=== PATIENT | female | born 1975 | race Caucasian/White ===

== ENCOUNTER → 2017-11-04 | Outpatient (CLI) | payer OTHER, SELFPAY | PROVIDERS: Visit Provider Internal Medicine Cardiovascular Disease | DX: I25.10 Atherosclerotic heart disease of native coronary artery without angina pectoris (principal); I10 Essential (primary) hypertension | CPT/HCPCS: 36415; 80048 ==

== ENCOUNTER → 2017-11-24 19:26 | Outpatient (CLI) | payer OTHER, SELFPAY | PROVIDERS: PCP Internal Medicine Cardiovascular Disease; Visit Provider Internal Medicine Cardiovascular Disease | DX: G47.10 Hypersomnia, unspecified (principal); I10 Essential (primary) hypertension; J44.9 Chronic obstructive pulmonary disease, unspecified; I25.10 Atherosclerotic heart disease of native coronary artery without angina pectoris | CPT/HCPCS: 95810 ==

== ENCOUNTER → 2018-02-03 14:00 | Outpatient (CLI) | payer MEDICAID, SELFPAY ==
[2018-02-03 16:24] LABS: Alanine Aminotransferase 158 U/L (12-78); Albumin Level 3.8 gm/dL (3.4-5.0); Alkaline Phosphatase 135 U/L (46-116); Aspartate Amino Transferase 172 U/L (15-37); Bilirubin,Direct 0.1 mg/dL (0.0-0.2); Bilirubin,Total 0.4 mg/dL (0.2-1.0); Chol/HDL Ratio 4.6 (1-3.5); Cholesterol 172 mg/dL (140-200); HDL Cholesterol 37 mg/dL (29-89); LDL Cholesterol 106 mg/dL (0-130); Total Protein,Serum 7.8 gm/dL (6.4-8.2); Triglycerides 146 mg/dL (30-200); VLDL Cholesterol 29 mg/dL (0-40)
== END ==
PROVIDERS: Physician Assistant; Visit Provider Internal Medicine Cardiovascular Disease
DX: I25.10 Atherosclerotic heart disease of native coronary artery without angina pectoris (principal); E78.5 Hyperlipidemia, unspecified; I10 Essential (primary) hypertension
CPT/HCPCS: 36415; 80061; 80076

== ENCOUNTER → 2019-08-23 12:46 | Outpatient (CLI) | payer MEDICAID, SELFPAY ==
--- NOTE | 2019-08-23 12:47 | CA_ITS ---
APPROVED REPORT EXAM: Comprehensive 2D, Doppler, and color-flow Echocardiogram Evening Sitter: Fabiola Martinez RDCS Ht: 5 ft 3 in Wt: 201lbs BSA: 1.94 BP: 131/93 mmHg Indications: Shortness of Breath, CAD, Hypertension/HDD, OBESITY 2D Dimensions LVOT 1.80 cm (M/F) 1.5-2.5 M-Mode Dimensions RVDd 2.60 cm (0.9-2.6) LA Diam 3.00 cm (1.9-4.0) LVDd 4.70 cm (3.5-5.7) Ao Diam 4.10 cm (2.0-3.7) LVDs 3.20 cm (3.5-5.7) AV Cusp 2.00 cm (1.5-2.6) IVSd 1.10 cm (0.6-1.1) PWd 0.90 cm (0.6-1.1) EF (Teich) 59.80% FS 31.90% EDV (Teich) 102.00 mL ESV (Teich) 41.00 mL LV Diastology E/A Ratio 1.2 MED E' 9.36 (< 7 cm/sec) E'/MED E' Ratio 7.40 (>14) LAT E' 11.10 (<10 cm/sec) E/LAT E' Ratio 6.20 (>14) Mitral Valve MV E Max Sebastián. 69.10 (40-130 cm/s) MV A Velocity 57.80 (40-130 cm/s) E/A Ratio 1.20 Tricuspid Valve TR P. Velocity 240.00 cm/s RAP Estimate 10.00 mmHg RVSP 33.00 mmHg Left Ventricle Left atrium is normal size, left ventricle is normal size, there is no concentric left ventricular hypertrophy, visually estimated ejection fraction 55% with no regional wall motion abnormality. Right Ventricle Right atrium and right ventricular normal size and contractility. Aortic Valve Aortic valve is grossly normal, there is no aortic stenosis aortic insufficiency. Mitral Valve Mitral valve is grossly normal, there is mild mitral regurgitation. Tricuspid Valve Tricuspid valve is grossly normal, there is mild tricuspid regurgitation. Pulmonic Valve Pulmonic valve is poorly visualized. Great Vessels Aortic root is normal size. Pericardium There is no significant pericardial effusion noted, there is anterior echo-free space seen. Conclusion 1. Normal left ventricular size, preserved left ventricular systolic function, visually estimated ejection fraction 55% with no regional wall motion abnormality, diastolic parameters are within normal range. 2. Mild mitral and tricuspid regurgitation. 3. No significant pericardial effusion in the anterior echo-free space seen. Electronically signed by : Crescencio Baird, 08/24/2019 15:17:03
== END ==
PROVIDERS: PCP Family Medicine; Visit Provider Urology
DX: I25.10 Atherosclerotic heart disease of native coronary artery without angina pectoris (principal); R06.00 Dyspnea, unspecified; E78.5 Hyperlipidemia, unspecified; I11.9 Hypertensive heart disease without heart failure; F17.200 Nicotine dependence, unspecified, uncomplicated
CPT/HCPCS: 93306

== ENCOUNTER 2021-07-01 13:14 | Emergency (ER) | payer MEDICAID, SELFPAY ==
--- NOTE | 2021-07-01 13:36 | HMH.EDGENADL ---
ED Disposition Referrals: Davonte Maldonado [Primary Care Provider] - Attestation: On 07/01/21, the high probability of a clinically significant, sudden or life threatening deterioration of the following system(s) required my full and direct attention, intervention and personal management. The time I documented below is in addition to time spent performing reported procedures but includes the following listed in this critical care notation. General Adult HPI - General Stated complaint: swelling in the r hand finger, elbow aches Time Seen by Provider: 07/01/21 13:36 - Related Data Home Medications Medication Instructions Recorded Confirmed evolocumab 140 mg/mL subcutaneous 140 mg SUB-Q Q2W 12/08/17 pen injector insulin lispro 100 unit/mL 10 unit SUB-Q QPM 12/08/17 subcutaneous solution levothyroxine 125 mcg tablet 125 mcg PO QDAY tab 12/08/17 metoclopramide HCl 10 mg tablet 10 mg PO QID tab 12/08/17 ropinirole 0.5 mg tablet 0.5 mg PO TID 12/08/17 sennosides 8.6 mg tablet 8.6 mg PO QDAY tab 12/08/17 tizanidine 4 mg capsule 4 mg PO QID cap 12/08/17 trazodone 50 mg tablet 50 mg PO ONCE tab 12/08/17 gabapentin 600 mg tablet 800 mg PO TID tab 08/15/19 lansoprazole 30 mg capsule,delayed 30 mg PO DAILY cap 08/15/19 release Previous Rx's Medication Instructions Recorded amlodipine 5 mg tablet 5 mg PO BID #180 tab 02/14/18 bisoprolol fumarate 10 mg tablet 10 mg PO DAILY #30 tab 08/15/19 hydrochlorothiazide 12.5 mg tablet 12.5 mg PO DAILY #30 tab 08/15/19 losartan 100 mg tablet 100 mg PO DAILY #30 tab 08/15/19 aspirin 81 mg tablet,delayed 81 mg PO QDAY #90 tab 05/20/20 release atorvastatin 10 mg tablet 10 mg PO QDAY #30 tab 07/29/20 Allergies Allergy/AdvReac Type Severity Reaction Status Date / Time No Known Allergies Allergy Verified 08/15/19 09:05 [facility] History - Hepatitis A Screen Attestation statement:: This patient has been screened for Hepatitis A risk factors. Medical History: Reports:: Anxiety, Asthma, Chronic Obstructive Pulmonary Disease (COPD), Coronary Artery Disease, Depression, Diabetes Mellitus Type 2, Gastroesophageal Reflux Disease(GERD), Hyperlipidemia, Hypertension, Palpitations Other Medical History: Reports: Anemia, Fibromyalgia, Hypothyroidism Laterality Cases: Bilateral: Tonsillectomy Other Surgeries: Yes: No Previous Surgery, Tubal Ligation, Other (ORAL Sx) - Social History Smoking Status: Current every day smoker Tobacco Type: cigarettes Alcohol Intake: current Alcohol Intake Frequency:: holidays/special occasions only Substance Use Type: denies use Occupational Status: unemployed - Psychiatric History Pschychiatric History:: Reports:: Anxiety, Depression Family Hx:: Heart Attack, Coronary Artery Disease
--- NOTE | 2021-07-01 13:57 | ECG_ITS ---
APPROVED REPORT Exam: Resting ECG HR:86 bpm ECG Measurements Heart Rate 86 AXES AR 140 P 42 QRSd 68 QRS 5 QT 338 T 34 QTc 404 Conclusion Normal sinus rhythm Normal ECG Electronically signed by : Thanh Shannon MD 07/02/2021 11:44:54
[2021-07-01 14:10] VITALS: BP 162/94; PULSE 107; RESP 20; TEMP 36.9; O2SAT 95
--- NOTE | 2021-07-01 14:10 | PC.NURSE ---
Pt was wanting to be seen for her right middle finger swelling last night, she put some ice on her finger and states this issue improved, she was c/o right elbow pain. I went to triage another pt when I returned pt was calling out help went to the room when pt was anxiously stating that she just didn't feel right, something was wrong, she was short of breath. Went and got the EKG machine and completed the task, pt stated that if the EKG was ok then she would feel better. Told the pt the EKG was normal and she said oh good now I feel better. Stating that she has asked her heart doctor what pains she would feel when she had a heart attach and he said it would be a different pain that what she feels daily and she stated that just made her feel anxious. Pt stated that she was better. Went outside room and approx 5 minutes later pt came out of the room stating that she needed to leave because her bp was making her stress and she was going to have a heart attach. Told the pt that we could removed the pt blood pressure cuff so it would not make her so anxious and she said no I just got to get out of here. Pt instructed to followup when she felt like she could.
== END 2021-07-01 14:11 | disposition left against medical advice (07) ==
PROVIDERS: Emergency Provider Emergency Medicine; PCP Family Medicine
DX: Z53.21 Procedure and treatment not carried out due to patient leaving prior to being seen by health care provider (principal)
CPT/HCPCS: 93005; 99211

== ENCOUNTER 2021-07-19 18:15 | Emergency (ER) | payer MEDICAID, SELFPAY ==
[2021-07-19 18:16] VITALS: BP 116/70; PULSE 78; RESP 16; TEMP 36.9; O2SAT 95; BMI 30.6
--- NOTE | 2021-07-19 19:22 | HMH.EDGENADL ---
ED Disposition Clinical Impression: Cutaneous abscess of face Disposition: Home, Self-Care Condition on Discharge: Fair Instructions: DI for Skin Abscess Additional Instructions: Stop Bactrim and start clindamycin. Continue warm compresses. Additional instructions for ABSCESS: Day one and two: Remove the bandage and shower the area, leaving the packing in place. Gently blot dry. Apply a bandage. Day three, Wednesday: Follow-up with primary care physician, clinic, or [facility]gent [facility] for packing removal and culture results. Return to the emergency department if increasing pain, swelling, redness, red streaks or fever greater than 101 degrees. Prescriptions: clindamycin HCL [Clindamycin HCl] 300 mg PO QID #40 cap Transmission Status: Pending to [id number] Referrals: Davonte Maldonado [Primary Care Provider] - - Critical Care Critical Care Time: No Attestation: On 07/19/21, the high probability of a clinically significant, sudden or life threatening deterioration of the following system(s) required my full and direct attention, intervention and personal management. The time I documented below is in addition to time spent performing reported procedures but includes the following listed in this critical care notation. Medical Decision Making - Onofre Inquiry Pt receiving controlled substance: No Onofre was queried for this patient: Yes Vital Signs: 07/19/21 18:16 Temperature 98.4 F Temperature Source Oral Pulse Rate [Right] 78 Respiratory Rate 16 Blood Pressure [Right Arm] 116/70 Blood Pressure Mean [Right Arm] 85 02 Sat by Pulse Oximetry 95 Oxygen Delivery Method Room Air Orders (Tests/Meds): ED MEDICATIONS Generic Name Dose Route Start Last Admin Trade Name Freq PRN Reason Stop Dose Admin Vancomycin HCl 1,500 mg/ 250 mls @ 125 mls/hr 07/19/21 19:45 07/19/21 19:45 Sodium Chloride IV 07/19/21 21:44 125 mls/hr ONCE ONE Administration Miscellaneous 1 each 07/19/21 19:30 07/19/21 19:34 Vancomycin Consult Request * 08/18/21 19:29 1 each CONSULT PHARMACY [facility] Administration Discontinued Medications Generic Name Dose Route Start Last Admin Trade Name Freq PRN Reason Stop Dose Admin Lidocaine/Epinephrine 20 ml 07/19/21 19:31 07/19/21 19:32 Lidocaine 1% W/Epi 1:100,000 20ml Vial SQ 07/19/21 19:32 5 ml ONCE ONE Administration ORDERS Category Date Time Status Basic Metabolic Panel Stat Lab 07/19/21 19:44 Received Complete Blood Count Auto Diff Stat Lab 07/19/21 19:44 Received Lactic Acid Stat Lab 07/19/21 19:44 Received Blood Culture Stat Micro 07/19/21 19:44 Received Wound Culture and Gram Stain Stat Micro 07/19/21 20:03 Ordered Medical Decision Narrative: Discussed treatment plan. Discussed disposition. Patient prefers not to be admitted. She would prefer an attempt at an incision and drainage in the emergency department. She is agreeable to intravenous antibiotics. Discussed disposition again after incision and drainage. Patient still declines admission. I will change her antibiotic to clindamycin and she will follow up with her primary care provider on Wednesday, return if worse. General Adult HPI - General Chief complaint: Skin/Abscess/Foreign Body Stated complaint: SPOT ON FACE Time Seen by Provider: 07/19/21 19:22 Mode of Arrival: Ambulatory Limitations: No Limitations Description of Symptoms (Recalled from ER Triage Doc. by RN): C/O ABSCESS TO LEFT CHEEK x3 DAYS. SEEN AT PCP & GIVEN BACTRIM & VALTREX, HOWEVER PAIN & SWELLING HAS INCREASED. SUBJECTIVE LOW GRADE FEVERS. - History of Present Illness HPI narrative: 3-day history of an abscess on her left cheek. States that she was seen by her primary care doctor a couple of days ago and was started on Bactrim. She also has some scaly spots below her left lower lip that have been present for about a week and he also started on Valtrex for the possibility of HSV.
--- NOTE | 2021-07-19 19:42 | PC.NURSE ---
Dr Andrade at bedside for I&D of abscess
[2021-07-19 20:05] LABS: Basophils % 0.6 % (0.1-2.0); Eosinophils % 0.3 % (0.1-12.0); Hematocrit 46.4 % (37.0-47.0); Hemoglobin 15.4 g/dL (12.2-16.2); Lymphocytes # 1.7 K/mm3 (0.7-4.5); Lymphocytes % 24.9 % (10-50); Mean Corpuscular HGB Conc 33.1 g/dL (31.8-35.4); Mean Corpuscular Hemoglobin 31.4 pg (27.0-31.2); Mean Corpuscular Volume 94.8 fl (81-99); Mean Platelet Volume 10.1 fl (7.4-10.4); Monocytes # 0.3 K/mm3 (0.1-1.0); Monocytes % 3.6 % (1.7-9.3); Neutrophils # 4.8 K/mm3 (1.8-7.8); Neutrophils % 70.6 % (37.0-80.0); Platelet Count 176 K/mm3 (142-424); Red Cell Distribution Width 13.7 % (11.5-17.5); White Blood Count 6.8 K/mm3 (4.8-10.8)
[2021-07-19 20:12] LABS: Anion Gap 16.5 mEq/L (5-15); Blood Urea Nitrogen 23 mg/dl (7-17); Calcium 10.9 mg/dl (8.4-10.2); Carbon Dioxide 23 mmol/L (22.0-30.0); Chloride 102 mmol/L (98-107); Creatinine Clearance Estimated 97 mL/min (50-200); Estimated Glomerular Filt Rate 67 ml/min (>60); GFR (African American) 82 ML/MIN (>60); Glucose 229 mg/dl (74-100); Potassium 4.5 mmoL/L (3.5-5.1); Sodium 137 mmol/L (136-145)
[2021-07-19 20:13] LABS: Lactic Acid 1.1 mmol/L (0.7-2.1)
[2021-07-19 22:21] VITALS: BP 124/82; PULSE 80; RESP 16; TEMP 36.7; O2SAT 95
== END 2021-07-19 22:22 | disposition home or self-care (01) ==
PROVIDERS: Emergency Provider Emergency Medicine; PCP Family Medicine
DX: L02.01 Cutaneous abscess of face (principal); E03.9 Hypothyroidism, unspecified; I10 Essential (primary) hypertension; K21.9 Gastro-esophageal reflux disease without esophagitis; J44.9 Chronic obstructive pulmonary disease, unspecified; E78.5 Hyperlipidemia, unspecified; F17.210 Nicotine dependence, cigarettes, uncomplicated; E11.9 Type 2 diabetes mellitus without complications
CPT/HCPCS: 10060; 80048; 83605; 85025; 87040; 87070; 87077; 87186; 87205; 96365; 99283; J3370

== ENCOUNTER → 2023-03-10 15:46 | Outpatient (CLI) | payer MEDICAID, SELFPAY ==
[2023-03-10 17:38] LABS: Alanine Aminotransferase 57 U/L (12-78); Alkaline Phosphatase 189 U/L (38-126); Aspartate Amino Transferase 56 U/L (14-36); Bilirubin,Indirect 0.5 mg/dL (0.0-0.9); Bilirubin,Total 0.5 mg/dl (0.2-1.3); Bilirubin,Unconjugated 0.5 mg/dL (0.0-1.1); Chol/HDL Ratio 4.9 (1-3.5); Cholesterol 151 mg/dl (140-200); HDL Cholesterol 31 mg/dl (40-60); Total Protein,Serum 7.3 g/dl (6.3-8.2); Triglycerides 185 mg/dl (30-150); VLDL Cholesterol 37 mg/dL (0-40)
[2023-03-10 19:09] LABS: Direct LDL Cholesterol 86.63 mg/dL (100-129)
== END ==
PROVIDERS: PCP Family Medicine; Visit Provider Nurse Practitioner
DX: I25.10 Atherosclerotic heart disease of native coronary artery without angina pectoris (principal); E78.49 Other hyperlipidemia; I11.9 Hypertensive heart disease without heart failure; F17.200 Nicotine dependence, unspecified, uncomplicated; J44.9 Chronic obstructive pulmonary disease, unspecified
CPT/HCPCS: 36415; 80061; 80076

== ENCOUNTER 2023-11-06 02:32 | Emergency (ER) | payer MEDICAID, SELFPAY ==
[2023-11-06 02:42] VITALS: BP 207/117; PULSE 90; RESP 20; TEMP 36.6; O2SAT 98; BMI 45.7
--- NOTE | 2023-11-06 02:50 | CT_ITS ---
PROCEDURE INFORMATION: Exam: CTA Chest With Contrast Exam date and time: 11/06/2023 3:17 AM Age: 48 years old Clinical indication: Pain; Chest pressure; Additional info: HTN, back pain, left side abd pain TECHNIQUE: Imaging protocol: Computed tomographic angiography of the chest with contrast. Exam focused on the arteries. 3D rendering (Not supervised by radiologist): MIP and/or 3D reconstructed images were created by the technologist. Radiation optimization: All CT scans at this facility use at least one of these dose optimization techniques: automated exposure control; mA and/or kV adjustment per patient size (includes targeted exams where dose is matched to clinical indication); or iterative reconstruction. Contrast material: ISOVUE; Contrast volume: 100 ml; Contrast route: INTRAVENOUS (IV); REPORTING DATA: Count of CT and Cardiac NM exams in prior 12 months: This patient has received 0 known CTs and 0 known cardiac nuclear medicine studies in the 12 months prior to the current study. COMPARISON: CR CXR CHEST(2 VIEWS-NOT PORTABLE) 10/20/2017 8:36 PM FINDINGS: Pulmonary arteries: Normal. No pulmonary emboli. Aorta: Unremarkable. No aortic aneurysm. No aortic dissection. Lungs: Unremarkable. No consolidation. No masses. Pleural spaces: Unremarkable. No pneumothorax. No pleural effusion. Heart: Unremarkable. No cardiomegaly. No pericardial effusion. Lymph nodes: Unremarkable. No enlarged lymph nodes. Bones/joints: Unremarkable. No acute fracture. Soft tissues: There is a 2.2 x 1.5 x 2.4 cm rounded and partially enhancing structure in the anterior mediastinum, see series 5, image 44.. IMPRESSION: 1. No acute findings. 2. 2.4 cm rounded density anterior mediastinum as described. Differential considerations include a prominent lymph node versus thymoma or other thymic lesion. Consider comparison with prior exams if available.
--- NOTE | 2023-11-06 02:50 | CT_ITS ---
PROCEDURE INFORMATION: Exam: CTA Abdomen and Pelvis With Contrast Exam date and time: 11/06/2023 3:17 AM Age: 48 years old Clinical indication: Abdominal pain; Acute; Additional info: HTN, back pain, left side abd pain TECHNIQUE: Imaging protocol: Computed tomographic angiography of the abdomen and pelvis with contrast. Exam focused on the arteries. 3D rendering (Not supervised by radiologist): MIP and/or 3D reconstructed images were created by the technologist. Radiation optimization: All CT scans at this facility use at least one of these dose optimization techniques: automated exposure control; mA and/or kV adjustment per patient size (includes targeted exams where dose is matched to clinical indication); or iterative reconstruction. Contrast material: ISOVUE; Contrast volume: 100 ml; Contrast route: INTRAVENOUS (IV); REPORTING DATA: Count of CT and Cardiac NM exams in prior 12 months: This patient has received 0 known CTs and 0 known cardiac nuclear medicine studies in the 12 months prior to the current study. COMPARISON: ABDPELW/O CT ABD PELVIS W/O CONTRAST 08/26/2017 10:05 PM FINDINGS: Aorta: No aortic aneurysm. No aortic dissection. Celiac trunk and mesenteric arteries: No occlusion or significant stenosis. Renal arteries: No occlusion or significant stenosis. Right iliac arteries: No occlusion or significant stenosis. Left iliac arteries: No occlusion or significant stenosis. Liver: The liver is low in density. Gallbladder and bile ducts: Prior cholecystectomy. Pancreas: Unremarkable. No mass. No ductal dilation. Spleen: Unremarkable. No splenomegaly. Adrenal glands: Unremarkable. No mass. Kidneys and ureters: There is a 5 mm stone at the left UPJ with mild to moderate left-sided hydronephrosis. Multiple intrarenal stones are noted bilaterally measuring up to 6 mm. Stomach and bowel: Unremarkable. No obstruction. No mucosal thickening. Appendix: No evidence of appendicitis. Intraperitoneal space: Unremarkable. No free air. No significant fluid collection. Lymph nodes: Unremarkable. No enlarged lymph nodes. Urinary bladder: Unremarkable. No mass. Reproductive: Unremarkable as visualized. Bones/joints: No acute fracture. Soft tissues: Unremarkable. IMPRESSION: 1. 5 mm left UPJ stone with moderate left-sided hydronephrosis. 2. Bilateral nephrolithiasis. 3. Diffuse hepatic steatosis. 4. Prior cholecystectomy, prior hysterectomy.
--- NOTE | 2023-11-06 02:52 | HMH.EDGENADL ---
Discharge Plan Disposition Patient Disposition: Home, Self-Care Prescriptions Prescriptions: New tamsulosin 0.4 mg capsule 0.4 mg PO DAILY Qty: 30 0RF ciprofloxacin HCl [Cipro] 500 mg tablet 500 mg PO BID Qty: 14 0RF No Action tizanidine 4 mg capsule 4 mg PO QID trazodone 50 mg tablet 50 mg PO ONCE ropinirole [Requip] 0.5 mg tablet 0.5 mg PO TID amlodipine [Norvasc] 5 mg tablet 5 mg PO BID Qty: 180 3RF aspirin [Adult Low Dose Aspirin] 81 mg tablet,delayed release (DR/EC) 81 mg PO QDAY Qty: 90 4RF fluticasone propion-salmeterol [Advair Diskus] 250-50 mcg/dose blister with device 1 inh INHALATION DAILY sennosides [senna] 8.6 mg tablet 8.6 mg PO DAILY loperamide 2 mg capsule 2 mg PO DAILY levothyroxine 300 mcg tablet 300 mcg PO DAILY (DME) OneTouch Ultra Test Strip MISCELLANEOUS hydrocodone-acetaminophen 10-325 mg tablet 1 tab PO TID PRN (Reason: Pain) ondansetron 8 mg tablet,disintegrating 8 mg PO Q8H PRN (Reason: Nausea And Vomiting) gabapentin 800 mg tablet 800 mg PO DAILY dicyclomine 20 mg tablet 20 mg PO DAILY lansoprazole 30 mg capsule,delayed release(DR/EC) 30 mg PO DAILY lidocaine 5 % adhesive patch,medicated 1 patch topical DAILY promethazine 25 mg tablet 25 mg PO Q8H PRN (Reason: Nausea And Vomiting) hydrochlorothiazide 12.5 mg capsule 12.5 mg PO DAILY ergocalciferol (vitamin D2) 1,250 mcg (50,000 unit) capsule 1,250 unit PO DAILY topiramate 100 mg tablet 100 mg PO DAILY losartan 100 mg tablet 100 mg PO DAILY doxepin 150 mg capsule 150 mg PO DAILY nabumetone 500 mg tablet 500 mg PO DAILY insulin lispro 100 unit/mL insulin pen See Rx Instructions .ROUTE .COMPLEX Rx Instructions: ORDERED lactulose [Enulose] 10 gram/15 mL solution 10 g PO DAILY (DME) pen needle, diabetic [BD Ultra-Fine Mini Pen Needle] 31 gauge x 3/16 needle MISCELLANEOUS insulin glargine 100 unit/mL (3 mL) insulin pen See Rx Instructions .ROUTE .COMPLEX Rx Instructions: ORDERED (DME) Dexcom G6 [place] Measurer Misc MISCELLANEOUS Combivent Respimat 20-100 mcg/actuation mist 2 puff INHALATION BID bisoprolol fumarate 10 mg tablet 10 mg PO DAILY Activity Restrictions/Add. Instructions Additional Instructions/Restrictions: You have a left-sided kidney stone and it is possible that you have a urinary tract infection. It is imperative that you take your antibiotics as prescribed. If you develop a fever, chills, or signs of systemic illness, please return to our ER or [facility] where the urologists are. Please call [phone] to follow-up with the [facility] urologists. I specifically spoke with Dr. Rasheed, though other physicians may be in charge of your care.. They next open on Wednesday at 830. It is important that you are seen as soon as possible and follow-up promptly. Please take tamsulosin as prescribed as it may help the kidney stone pass. If you have acute pain, recommend taking Tylenol, ibuprofen, opiates to see if it helps. Clinical Impressions Clinical Impression: Hydronephrosis with obstructing calculus, UTI (urinary tract infection) Instructions Patient Instructions: DI for Acute Abdominal Pain Discharge ED Provider: Casimiro Correa General Adult HPI General Chief complaint: Abdominal Pain Stated complaint: L side abdominal, N/V Time Seen by Provider: 11/06/23 02:46 Mode of Arrival: EMS Source of Information: Patient Limitations: No Limitations Description of Symptoms (Recalled from ER Triage Doc. by RN): Patient states that she has left flank pain/nausea/vomiting that started around midnight tonight. History of Present Illness HPI narrative: 48-year-old female, history of coronary artery disease, COPD, skin disease , tobacco use, presents with acute onset severe left-side
[2023-11-06 03:00] LABS: Basophils # 0.1 K/mm3 (0-0.2); Basophils % 0.4 % (0.1-2.0); Eosinophils # 0.1 K/mm3 (0.0-0.4); Eosinophils % 0.6 % (0.1-12.0); Hematocrit 51.5 % (37.0-47.0); Hemoglobin 17.3 g/dL (12.2-16.2); Lymphocytes # 2.1 K/mm3 (0.7-4.5); Lymphocytes % 12.2 % (10-50); Mean Corpuscular HGB Conc 33.6 g/dL (31.8-35.4); Mean Corpuscular Volume 95.2 fl (81-99); Mean Platelet Volume 10.3 fl (7.4-10.4); Monocytes # 0.5 K/mm3 (0.1-1.0); Monocytes % 2.8 % (1.7-9.3); Neutrophils # 14.7 K/mm3 (1.8-7.8); Neutrophils % 84.1 % (37.0-80.0); Platelet Count 215 K/mm3 (142-424); Red Blood Count 5.41 M/mm3 (4.20-5.40); Red Cell Distribution Width 14.1 % (11.5-17.5); White Blood Count 17.4 K/mm3 (4.8-10.8)
[2023-11-06 03:02] LABS: MANUAL DIFFERENTIAL MANUAL DIFFERENTIAL (MANUAL DIFF)
--- NOTE | 2023-11-06 03:06 | ECG_ITS ---
APPROVED REPORT Exam: Resting ECG HR:88 bpm ECG Measurements Heart Rate 88 AXES LA 150 P 56 QRSd 82 QRS 32 QT 381 T 37 QTc 427 Conclusion SINUS RHYTHM SEPTAL MYOCARDIAL INFARCTION , OF INDETERMINATE AGE [40+ ms Q WAVE IN V1/V2] ABNORMAL ECG UNCONFIRMED REPORT Electronically signed by : Thanh Shannon MD 11/10/2023 09:08:38
[2023-11-06 03:07] LABS: Alanine Aminotransferase 89 U/L (12-78); Alkaline Phosphatase 202 U/L (38-126); Aspartate Amino Transferase 86 U/L (14-36); Bilirubin,Total 0.9 mg/dl (0.2-1.3); Blood Urea Nitrogen 10 mg/dl (7-17); Carbon Dioxide 24 mmol/L (22.0-30.0); Chloride 101 mmol/L (98-107); Creatinine Clearance Estimated 90 mL/min (50-200); Estimated Glomerular Filt Rate 106 ml/min (>60); GFR (African American) 129 ML/MIN (>60)
[2023-11-06 03:09] LABS: Albumin Level 4.6 g/dl (3.5-5.0); Albumin/Globulin Ratio 1.2 (1.1-1.8); Anion Gap 11.6 mEq/L (5-15); Calcium 10.4 mg/dl (8.4-10.2); Globulin 3.7 g/dL (1.3-3.2); Glucose 271 mg/dl (74-100); Potassium 3.6 mmoL/L (3.5-5.1); Sodium 133 mmol/L (136-145); Total Protein,Serum 8.3 g/dl (6.3-8.2)
--- NOTE | 2023-11-06 03:16 | PC.NURSE ---
patient in CT at this time.
[2023-11-06 03:20] LABS: NT Pro Brain Natriuretic Pep. 58.4 pg/mL (0-125)
[2023-11-06 03:21] LABS: Eosinophils % 1 % (0-3); Lymphocytes % 10 % (10-50); Monocytes % 4 % (2-9); Neutrophils % 85 % (42-76); Platelet Estimate Normal; RBC Morphology Normal; Total Cells Counted 100
[2023-11-06 03:22] LABS: Troponin I < 0.01 ng/ml (0.00-0.034)
[2023-11-06 03:30] VITALS: BP 184/93; PULSE 82; O2SAT 95
[2023-11-06 03:41] LABS: Microscopic, Urine URINE MICROSCOPIC (MICROSCOPIC)
[2023-11-06 03:42] LABS: Appearance,Urine SL CLOUDY (Clear); Blood, Urine 2+ (Negative); Color,Urine YELLOW (Yellow); Glucose,Urine (UA) Negative (Negative); Ketones,Urine TRACE (Negative); Leukocyte Esterase,Urine 1+ (Negative); Nitrate,Urine Negative (Negative); Protein,Urine 1+ (Negative); Specific Gravity, Urine 1.015 (1.005-1.030); Urobilinogen,Urine 0.2 EU/dl (0.2)
[2023-11-06 03:51] LABS: Bilirubin,Urine 1+ (Negative)
[2023-11-06 03:52] LABS: WBC,Urine 20-50 #/hpf (0-3)
[2023-11-06 03:53] LABS: Bacteria,Urine 1+ /lpf; Calcium Oxalate Crystals,Urine Trace /lpf; Hyaline Casts,Urine Occasional #/lpf (0)
[2023-11-06 04:00] VITALS: BP 164/96; PULSE 72; O2SAT 93
[2023-11-06 04:31] VITALS: BP 156/81; PULSE 64; O2SAT 96
[2023-11-06 05:31] VITALS: BP 156/80; PULSE 68; O2SAT 96
--- NOTE | 2023-11-06 05:37 | PC.NURSE ---
call placed to [facility] [phone]; and spoke with bonnie. was informed that they have no bed avail in the [facility] and page is being sent out to urology for consult
--- NOTE | 2023-11-06 05:53 | PC.NURSE ---
call returned from dr hanna @ [facility].
--- NOTE | 2023-11-06 06:00 | PC.NURSE ---
in room speaking with patient at this time.
[2023-11-06 06:26] VITALS: BP 160/101; PULSE 73; RESP 18; TEMP 36.6; O2SAT 98
--- NOTE | 2023-11-10 13:41 | PC.NURSE ---
blood culture results show staphylococcus hominis iv rocephin in ER, dc on cipro, no further action per
== END 2023-11-06 06:28 | disposition home or self-care (01) ==
PROVIDERS: Emergency Provider Emergency Medicine
DX: A41.1 Sepsis due to other specified staphylococcus (principal); N39.0 Urinary tract infection, site not specified; B96.89 Other specified bacterial agents as the cause of diseases classified elsewhere; N13.0 Hydronephrosis with ureteropelvic junction obstruction; R10.32 Left lower quadrant pain; R11.2 Nausea with vomiting, unspecified; J44.9 Chronic obstructive pulmonary disease, unspecified; F17.210 Nicotine dependence, cigarettes, uncomplicated; I11.9 Hypertensive heart disease without heart failure; I25.10 Atherosclerotic heart disease of native coronary artery without angina pectoris
CPT/HCPCS: 71275; 74174; 80053; 81001; 83880; 84484; 85007; 85025; 87040; 87086; 93005; 96365; 96375; 99285; J0696; J2405; Q9967